=== PATIENT | female | born 1930 | race Two or more races ===

== ENCOUNTER 2018-10-04 12:58 | Inpatient (IN) | payer MEDICARE, MEDICAID ==
[~2018-10-04] VITALS: Ht 152.4 cm; Wt 48.2 kg
--- NOTE | 2018-10-04 13:00 | NUR ---
AAOX3, BIB RA 102 FROM HOME,WEAKNESS X 4 DAYS. RR is even and unlabored with NAD noted. Skin is warm and dry. Placed on hospital gown and monitor. Awaiting md for eval.
[2018-10-04 13:25] LABS: BASOPHILS % (AUTO) 1.2 % (0.0-2.0); EOSINOPHILS % (AUTO) 1.2 % (0.0-6.0); HEMATOCRIT 25 % (33-45); HEMOGLOBIN 8.1 g/dL (11.5-14.8); LYMPHOCYTES # (AUTO) 0.6 /CMM (0.8-4.8); LYMPHOCYTES % (AUTO) 29.8 % (20.0-44.0); MEAN CORPUSCULAR HGB CONC 33 g/dl (31.0-36.0); MEAN CORPUSCULAR VOLUME 110 fL (82-100); MONOCYTES # (AUTO) 0.1 /CMM (0.1-1.30); NEUTROPHILS # (AUTO) 1.3 /CMM (1.8-8.9); NEUTROPHILS % (AUTO) 61.8 % (43.0-81.0); PLATELET COUNT (AUTO) 100 /CMM (150-450); RED BLOOD CELL COUNT(AUTO) 2.24 MIL/uL (4.0-5.2); WHITE BLOOD COUNT (AUTO) 2.1 K/uL (4.3-11.0)
[2018-10-04 13:35] LABS: CALCIUM, SERUM 8.8 mg/dL (8.5-10.1); CARBON DIOXIDE 25 mmol/L (21-32); CHLORIDE 103 mmol/L (98-107); GLUCOSE 143 mg/dL (74-106); POTASSIUM 4.4 mmol/L (3.5-5.1); SODIUM SERUM 137 mmol/L (136-145); UREA NITROGEN, BLOOD 31 mg/dL (7-18)
[2018-10-04 13:41] LABS: ALANINE AMINOTRANSFERASE 17 U/L (12-78); ALBUMIN 3.6 g/dL (3.4-5.0); ALKALINE PHOSPHATASE 66 U/L (46-116); ASPARTATE AMINOTRANSFERASE 10 U/L (15-37); BILIRUBIN,DIRECT 0.3 mg/dL (0.0-0.2); BILIRUBIN,TOTAL 0.9 mg/dL (0.2-1.0); TOTAL PROTEIN, SERUM 6.2 g/dL (6.4-8.2)
[2018-10-04] MEDS ORDERED: CLON0.1T PO (13:51)
[2018-10-04] MEDS ORDERED: FERR325T24 PO (13:51)
[2018-10-04] MEDS ORDERED: ISOS60TA4 PO (13:51)
[2018-10-04] MEDS ORDERED: ACET-2605 PO (13:51)
[2018-10-04] MEDS ORDERED: LOSA100T31 PO (13:51)
[2018-10-04] MEDS ORDERED: ATOR10TA PO (13:51)
[2018-10-04] MEDS ORDERED: ASPI81TA44 PO (13:51)
[2018-10-04] MEDS ORDERED: AMLO5TAB9 PO (13:51)
[2018-10-04] MEDS ORDERED: FURO20TA4 PO (13:51)
[2018-10-04] MEDS ORDERED: CLON0.5T12 PO (13:51)
[2018-10-04] MEDS ORDERED: CARV25TA2 PO (13:51)
[2018-10-04] MEDS ORDERED: AMIO200T4 PO (13:51)
[2018-10-04] MEDS ORDERED: ERGO500040 PO (13:51)
[2018-10-04] MEDS ORDERED: NIFE30TA89 PO (13:51)
[2018-10-04 14:33] LABS: BAND % (MANUAL) 2 % (0.0-5.0); LYMPHOCYTES % (MANUAL) 33 % (16-48); MONOCYTES % (MANUAL) 4 % (0-11.0); NEUTROPHILS % (MANUAL) 61 (42-76)
[2018-10-04] MEDS ORDERED: ACETAMINOPHEN 325 MG TABLET ONE (14:51)
--- NOTE | 2018-10-04 14:54 | NUR ---
verbally ordered by Dr Sheldon Tylenol 650mg PO given.
[2018-10-04 15:29] LABS: APPEARANCE,URINE Clear (CLEAR); BILIRUBIN,URINE Negative (NEGATIVE); BLOOD, URINE Negative Ery/uL (NEGATIVE); COLOR,URINE Yellow (YELLOW); KETONES,URINE Negative (NEGATIVE); LEUKOCYTE ESTERASE ,URINE Negative (NEGATIVE); NITRITE, URINE Negative (NEGATIVE); PH,URINE 5.5 (5.0-8.0); PROTEIN,URINE Negative (NEGATIVE); UGLUCOSE Negative (NEGATIVE); UROBILINOGEN,URINE 0.2 EU/dL (0.2)
[2018-10-04] MEDS ORDERED: FUROSEMIDE 40 MG/4 ML VIAL ONE (15:29)
[2018-10-04] MEDS ORDERED: FUROSEMIDE 40 MG/4 ML VIAL IV ONE ×3 (15:30→20:00)
[2018-10-04] MEDS ORDERED: ENALAPRILAT INJ (1.25 MG/ML) 1.25 MG/ML VIAL IV PRN (15:30)
[2018-10-04] MEDS ORDERED: ACETAMINOPHEN 650 MG/20.3 ML UDC PO ONE (15:30)
[2018-10-04] MEDS ORDERED: ONDANSETRON HCL/PF 4 MG/2 ML VIAL IVP PRN (16:00)
[2018-10-04] MEDS ORDERED: MORPHINE SULFATE INJ 2 MG/ML DISP.SYRIN IV PRN (16:00)
[2018-10-04] MEDS ORDERED: MAGNESIUM HYDROXIDE 30 ML UDC PO PRN (16:00)
[2018-10-04] MEDS ORDERED: ACETAMINOPHEN 325 MG TABLET PO PRN (16:00)
[2018-10-04] MEDS ORDERED: HYDROCODONE/APAP 5/325MG 1 EACH TABLET PO PRN (16:00)
[2018-10-04] MEDS ORDERED: MAG HYDROX/AL HYDROX/SIMETH 30 ML UDC PO PRN (16:00)
[2018-10-04] MEDS ORDERED: CLONIDINE HCL 0.1 MG TABLET PO PRN (16:00)
--- NOTE | 2018-10-04 16:17 | NUR ---
CALLED ROBERTO GALVIN FOR BED; STATED THAT HE IS WAITING FOR DISCHARGES FROM UP STAIRS TO HAPPEN, THEN HE WILL GIVE BEDS.
[2018-10-04] MEDS ORDERED: AMLODIPINE BESYLATE 5 MG TABLET PO SCH (17:00)
--- NOTE | 2018-10-04 17:52 | NUR ---
REPORT GIVEN TO jarret BEACH FOR DEMI TELE 309-1
[2018-10-04] MEDS: PANTOPRAZOLE 40 MG TABLET.DR PO SCH (19:02)
--- NOTE | 2018-10-04 19:22 | NUR ---
REPORT ENDORSED TO Nadeen. QUESTIONS CONCERNS ADDRESSED. ONE TIME ORDER OF LASIX ADMISSION ORDER ENDORSED PHARMACY HAD TO REORDER SINCE PAST DUE. PATIENT IS IN BED DOWN LOCKED, IVORIAN SPEAKING ONLY BUT NO DISTRESS. NO FAMILY AT THE BEDSIDE.CALL LIGHT IN REACH.
--- NOTE | 2018-10-04 19:55 | NUR ---
RN ADMITTING NOTES/OPENING NOTES: Pt ALREADY ON FLOOR AT CHANGE OF SHIFT. RECEIVED REPORT FROM DAYSKYFT RN SHAMA/DIOR. FOUND Pt AWAKE, RESTING IN BED. NO S/S OF ACUTE DISTRESS OR SOB NOTED. Pt IS A/OX4, VERBAL, MONTENEGRIN SPEAKING ONLY. NO C/O PAIN AT THIS TIME. ON TELE MONITOR; READING SR 60s V-PACING. IV ACCESS ON LFA #20G, SL. SAFETY MEASURES IN PLACE. BED LOW, LOCKED, HOB ELEVATED, SIDE RAILS UP, CALL LIGHT AND BEDSIDE TABLE WITHIN REACH. WILL CONTINUE TO MONITOR Pt's CONDITION AND SAFETY THROUGHOUT THE NIGHT.
[2018-10-04 20:00] VITALS: BP 131/58
[2018-10-04] MEDS: ENOXAPARIN SODIUM 30 MG/0.3 ML DISP.SYRIN SQ SCH (21:39)
[2018-10-04] MEDS: clonazePAM 0.5 MG TABLET PO SCH (21:39)
[2018-10-04] MEDS: CARVEDILOL 6.25 MG TABLET PO SCH (21:41)
[2018-10-05] VITALS (7 sets, daily range): BP systolic 113–151; BP diastolic 51–68
--- NOTE | 2018-10-05 06:44 | NUR ---
RN CLOSING NOTES NO SIGNIFICANT CHANGES IN Pt's CONDITION. Pt REMAINS STABLE AT THIS TIME. NO S/S OF ACUTE DISTRESS OR SOB NOTED DURING THE NIGHT. ALL NEEDS MET AND ATTENDED TO. Pt IS CURRENTLY RESTING IN BED WITH EVEN AND UNLABORED RESPIRATIONS. TELE READING SR 60s A-PACING. SAFETY MEASURES IN PLACE. WILL ENDORSE TO DAYSHIFT RN FOR Pt's DEMI.
[2018-10-05 07:40] LABS: BASOPHILS % (AUTO) 1.7 % (0.0-2.0); EOSINOPHILS % (AUTO) 0.8 % (0.0-6.0); HEMATOCRIT 26 % (33-45); HEMOGLOBIN 8.8 g/dL (11.5-14.8); LYMPHOCYTES # (AUTO) 0.7 /CMM (0.8-4.8); LYMPHOCYTES % (AUTO) 40.3 % (20.0-44.0); MEAN CORPUSCULAR HGB CONC 34 g/dl (31.0-36.0); MEAN CORPUSCULAR VOLUME 106 fL (82-100); MONOCYTES # (AUTO) 0.1 /CMM (0.1-1.30); MONOCYTES % (AUTO) 4.9 % (2.0-12.0); NEUTROPHILS # (AUTO) 0.9 /CMM (1.8-8.9); NEUTROPHILS % (AUTO) 52.3 % (43.0-81.0); PLATELET COUNT (AUTO) 98 /CMM (150-450); RED BLOOD CELL COUNT(AUTO) 2.44 MIL/uL (4.0-5.2)
[2018-10-05 07:47] LABS: CALCIUM, SERUM 9.1 mg/dL (8.5-10.1); CARBON DIOXIDE 31 mmol/L (21-32); CHLORIDE 101 mmol/L (98-107); CREATININE 1.1 mg/dL (0.6-1.3); GLUCOSE 84 mg/dL (74-106); MAGNESIUM 1.9 mg/dL (1.8-2.4); PHOSPHORUS 4.6 mg/dL (2.5-4.9); POTASSIUM 3.5 mmol/L (3.5-5.1); SODIUM SERUM 141 mmol/L (136-145); UREA NITROGEN, BLOOD 34 mg/dL (7-18)
[2018-10-05 07:55] LABS: WHITE BLOOD COUNT (AUTO) 1.8 K/uL (4.3-11.0)
--- NOTE | 2018-10-05 07:58 | NUR ---
PLANT TENDER OPENING NOTES PATIENT A/O X 4 AND ABLE TO MAKE NEEDS KNOWN, RESPONSIVE TO ALL STIMULI. RESPIRATION EVEN AND NON LABORED WITH NO ACUTE RESPIRATORY DISTRESS. ABDOMEN SOFT AND NON DISTENDED WITH ACTIVE BOWEL SOUNDS TO ALL QUADRANTS. SKIN WARM TO TOUCH, INTACT AND DRY. IV LINE AT LEFT FA GAUGE 20 WITH NO S/SX OF INFILTRATION. TELE MONITOR WITH A PACE 60. ALL CONCERNS ATTENDED. PLACED CALL LIGHT WITHIN REACH FOR SAFETY. WILL CONTINUE TO EVALUATE CARE.
[2018-10-05] MEDS ORDERED: POTASSIUM CHLORIDE 20 MEQ POWDER PACKET PO ONE (08:00)
[2018-10-05 08:14] LABS: BAND % (MANUAL) 4 % (0.0-5.0); EOSINOPHILS % (MANUAL) 1 % (0-4); LYMPHOCYTES % (MANUAL) 42 % (16-48); MONOCYTES % (MANUAL) 6 % (0-11.0); NEUTROPHILS % (MANUAL) 47 (42-76)
[2018-10-05] MEDS ORDERED: NIFEdipine XL (30MG) 30 MG TAB PO SCH (09:00)
[2018-10-05] MEDS ORDERED: ISOSORBIDE MONONITRATE (30MG) 30 MG TAB.SR.24H PO SCH (09:00)
[2018-10-05] MEDS ORDERED: FUROSEMIDE 40 MG TABLET PO SCH (09:00)
[2018-10-05] MEDS: PANTOPRAZOLE 40 MG TABLET.DR PO SCH (09:02)
[2018-10-05] MEDS: FERROUS SULFATE (325 MG) 325 MG/TAB TABLET PO SCH (09:02)
[2018-10-05] MEDS: ATORVASTATIN 10 MG TABLET PO SCH (09:02)
[2018-10-05] MEDS: CARVEDILOL 6.25 MG TABLET PO SCH ×2 (09:03→21:32)
[2018-10-05] MEDS: LOSARTAN POTASSIUM 25 MG TABLET PO SCH (09:04)
[2018-10-05] MEDS: ASPIRIN EC 81 MG TABLET.DR PO SCH (09:04)
[2018-10-05] MEDS: FUROSEMIDE 20 MG TABLET PO SCH ×2 (09:05→09:06)
[2018-10-05] MEDS: hydrALAZINE HCL 50 MG TABLET PO SCH ×2 (09:05→16:45)
[2018-10-05] MEDS: AMIODARONE HCL 200 MG TABLET PO SCH (09:05)
[2018-10-05 09:31] LABS: CHOLESTEROL 136 mg/dL (<200); HDL CHOLESTEROL 66 mg/dL (40-60); LDL 64 mg/dL (0-99); THYROID STIMULATING HORMONE 2.249 uIU/mL (0.358-3.74); TRIGLYCERIDES 75 mg/dL (30-150)
--- NOTE | 2018-10-05 18:46 | NUR ---
LEARNING AND DEVELOPMENT SPECIALIST CLOSING NOTES PATIENT A/O X 4 AND ABLE TO MAKE NEEDS KNOWN, RESPONSIVE TO ALL STIMULI. RESPIRATORY EVEN AND NON LABORED WITH NO ACUTE RESPIRATORY DISTRESS. ABDOMEN SOFT AND NON DISTENDED WITH ACTIVE BOWEL SOUNDS TO ALL QUADRANTS. PATIENT DENIES PAIN AND DISCOMFORT. SKIN WARM TO TOUCH, INTACT AND DRY. IV AT LEFT ANTECUBITAL WITH GAUGE 20 PATENT IN FLUSHING, NO S/SX OF INFILTRATION. TELE MONITOR WITH SINUS RHYTHM WITH A PACE AT 68. ALL CONCERNS ADDRESSED. PLACED CALL LIGHT WITHIN REACH TO ENSURE SAFETY. ENDORSED PATIENT CONDITION TO NEXT SHIFT.
--- NOTE | 2018-10-05 19:50 | NUR ---
RN INITIAL NOTES: RECEIVED REPORT FROM JACK RN, PT IN BED, AWAKE, A/O X3 ON RA RESPIRATION EVEN AND UNLABORED, DENIES ANY PAIN OR DISCOMFORT AT THIS TIME. BED SIDE COMMODE AVAILABLE. CHANGED PT'S IV ACCESS NOTED TO BE LEAKING. REINSERTED ON LEFT FA USING G22, GOOD BLOOD RETURN NOTED. BLE OFFLOADED. SAFETY PRECAUTIONS FOR FALL INITIATED, CALL LIGHT IN REACH, WILL CONTINUE MONITORING PT.
--- NOTE | 2018-10-05 20:00 | NUR ---
RN NOTES: LEFT EAR HEARING AID IN PLACED
[2018-10-05] MEDS: ENOXAPARIN SODIUM 30 MG/0.3 ML DISP.SYRIN SQ SCH (21:00)
--- NOTE | 2018-10-05 21:11 | NUR ---
NON ADMIN OF LOVENOX: CONTACTED MD REGIONAL SERVICE MANAGER RELAYED ABOUT H/H AND PLATELET 8.6 AND PLT 98, PT HAS SCHEDULE LOVENOX AT 2100, PER MD HOLD DOSE FOR MARGRET.
[2018-10-05] MEDS: clonazePAM 0.5 MG TABLET PO SCH (21:36)
[2018-10-06] VITALS: BP 143/64
--- NOTE | 2018-10-06 01:02 | NUR ---
RN NOTES: SEEN PT SLEEPING AT THIS TIME, APPEARS CALM AND COMFORTABLE
[2018-10-06 06:48] LABS: CALCIUM, SERUM 8.6 mg/dL (8.5-10.1); CARBON DIOXIDE 28 mmol/L (21-32); CHLORIDE 106 mmol/L (98-107); CREATININE 1.4 mg/dL (0.6-1.3); GLUCOSE 86 mg/dL (74-106); POTASSIUM 3.8 mmol/L (3.5-5.1); SODIUM SERUM 144 mmol/L (136-145); UREA NITROGEN, BLOOD 41 mg/dL (7-18)
--- NOTE | 2018-10-06 06:48 | NUR ---
rn closing notes: pt in bed, awake, appears calm and comfortable, iv access remains patent and flushing well, on hl. remains on sinus rhythm hr 63 and a pacing. vs remains stable, needs attended. safety precautions for fall remains engaged, call light in reach, will endorse to day rn for continuity of care.
--- NOTE | 2018-10-06 07:24 | NUR ---
RN NOTES: SEEN BY INSPECTOR RAG SORTING, PER MD CORNELIA MARTINEZ TODAY, REPEAT BMP IN THE AFTERNOON 1200, IF CREATININE RESULT IS THE SAME OR LESS, OKAY TO DC LATER TODAY, BUT IF CREATININE WENT UP/ELEVATED, KEEP PT FOR ONE MORE DAY. RELAYED ALL THIS TO DAY LUCIANO CARLISLE
[2018-10-06 08:00] VITALS: BP 156/67
--- NOTE | 2018-10-06 08:00 | NUR ---
RN NOTES RECEIVED PATIENT IN THE BED A/O X3 TURKISH SPEAKER FEMALE ON TELE SR-67. PATIENT STABLE NO ACUTE RESPIRATORY DISTRESS, V/S STABLE, ADMINISTERED SCHEDULED MEDICATION. NEEDS ATTENDED AND ANTICIPATED. PATIENT REFUSED PAIN AT THIS TIME. HELD 2 BP MEDICATION. CALL LIGHT WITHIN TO REACH. SAFETY PRECAUTION MAINTAINED ALL THE TIME.
[2018-10-06] MEDS: AMIODARONE HCL 200 MG TABLET PO SCH (09:00)
[2018-10-06] MEDS: LOSARTAN POTASSIUM 25 MG TABLET PO SCH (09:00)
[2018-10-06] MEDS: ASPIRIN EC 81 MG TABLET.DR PO SCH ×2 (09:00→09:52)
[2018-10-06 09:18] VITALS: BP 130/80
[2018-10-06] MEDS: PANTOPRAZOLE 40 MG TABLET.DR PO SCH (09:51)
[2018-10-06] MEDS: FERROUS SULFATE (325 MG) 325 MG/TAB TABLET PO SCH (09:51)
[2018-10-06] MEDS: CARVEDILOL 6.25 MG TABLET PO SCH ×2 (09:52→21:00)
[2018-10-06] MEDS: ATORVASTATIN 10 MG TABLET PO SCH (09:53)
[2018-10-06] MEDS: hydrALAZINE HCL 50 MG TABLET PO SCH ×2 (09:58→16:46)
--- NOTE | 2018-10-06 10:24 | NUR ---
RN NOTES PATIENT WALKING IN THE HALLWAY WITH PT USING WALKER, STABLE, CONTINUED MONITORING.
--- NOTE | 2018-10-06 12:00 | NUR ---
RN NOTES ASSIST PATIENT TO THE BATHROOM, PATIENT UNSTEADY GAIT, SAFETY PRECAUTION MAINTAINED ALL THE TIME. FAMILY NEXT TO THE BED.
[2018-10-06 13:01] LABS: CALCIUM, SERUM 8.6 mg/dL (8.5-10.1); CARBON DIOXIDE 28 mmol/L (21-32); CHLORIDE 105 mmol/L (98-107); CREATININE 1.4 mg/dL (0.6-1.3); GLUCOSE 145 mg/dL (74-106); SODIUM SERUM 142 mmol/L (136-145); UREA NITROGEN, BLOOD 39 mg/dL (7-18)
--- NOTE | 2018-10-06 15:05 | NUR ---
RN NOTES ADMINISTERED TYLENOL 650 MG PO PRN FOR GENERALIZED PAIN 5/10 PER PATIENT REQUEST, CONTINUED MONITORING.
[2018-10-06 16:00] VITALS: BP 120/49
[2018-10-06 16:45] VITALS: BP 120/49
--- NOTE | 2018-10-06 16:55 | NUR ---
RN NOTES PATIENT REFUSED BP MEDICATION BECAUSE OF BP 120/49, P-71 LOW. FAMILY NEXT TO THE BED. SAFETY PRECAUTION MAINTAINED ALL THE TIME.
--- NOTE | 2018-10-06 19:05 | NUR ---
MS RN NOTES RECEIVED PT IN THE BED AWAKE AND ABLE TO MAKE NEEDS KNOWN. PT A/O X3 AND GREEK SPEAKING. RESPIRATIONS EVEN AND UNLABORED WITH NO S/S OF ACUTE DISTRESS OR SOB NOTED. PT DENIES PAIN AT THIS TIME. SAFETY MEASURES IN PLACE WITH BED IN LOWEST LOCKED POSITION WITH SIDE RAILS UP X2. CALL LIGHT WITHIN REACH. WILL CONTINUE TO MONITOR.
[2018-10-06 20:42] VITALS: BP 125/52
[2018-10-06] MEDS: ENOXAPARIN SODIUM 30 MG/0.3 ML DISP.SYRIN SQ SCH (21:00)
[2018-10-06] MEDS: clonazePAM 0.5 MG TABLET PO SCH (21:50)
--- NOTE | 2018-10-07 06:42 | NUR ---
MS RN NOTES PT IN THE BED SLEEPING BUT EASILY AWOKEN VERBALLY OR BY TOUCH. PT A/O X3 AND UZBEK SPEAKING AND ABLE TO MAKE NEEDS KNOWN. RESPIRATIONS EVEN AND UNLABORED WITH NO S/S OF ACUTE DISTRESS OR SOB NOTED THROUGHOUT SHIFT. PT DENIES PAIN AT THIS TIME. SAFETY MEASURES IN PLACE WITH BED IN LOWEST LOCKED POSITION WITH SIDE RAILS UP X2. CALL LIGHT WITHIN REACH. WILL ENDORSE TO ONCOMING NURSE FOR DEMI.
[2018-10-07 08:21] VITALS: BP 171/75
[2018-10-07 08:30] LABS: CALCIUM, SERUM 9.1 mg/dL (8.5-10.1); CARBON DIOXIDE 27 mmol/L (21-32); CHLORIDE 106 mmol/L (98-107); CREATININE 1.2 mg/dL (0.6-1.3); GLUCOSE 107 mg/dL (74-106); POTASSIUM 3.9 mmol/L (3.5-5.1); SODIUM SERUM 144 mmol/L (136-145); UREA NITROGEN, BLOOD 35 mg/dL (7-18)
[2018-10-07] MEDS: PANTOPRAZOLE 40 MG TABLET.DR PO SCH (08:41)
[2018-10-07] MEDS: CARVEDILOL 6.25 MG TABLET PO SCH (08:41)
[2018-10-07] MEDS: ATORVASTATIN 10 MG TABLET PO SCH (08:41)
[2018-10-07 08:42] VITALS: BP 171/75
[2018-10-07] MEDS: AMIODARONE HCL 200 MG TABLET PO SCH (08:42)
[2018-10-07] MEDS: hydrALAZINE HCL 50 MG TABLET PO SCH (08:42)
[2018-10-07] MEDS: LOSARTAN POTASSIUM 25 MG TABLET PO SCH (08:42)
[2018-10-07] MEDS: ASPIRIN EC 81 MG TABLET.DR PO SCH (08:42)
[2018-10-07] MEDS: FERROUS SULFATE (325 MG) 325 MG/TAB TABLET PO SCH (08:42)
--- NOTE | 2018-10-07 10:02 | NUR ---
MS RN NOTES PATIENT IN BED RESTING PATIENT ALERT, ORIENTED X3 DENIES ANY PAIN. PERIPHERAL IV INTACT PATENT. BED IN LOW LOCKED POSITION. CALL LIGHT WITHIN REACH. WILL CONTINUE TO MONITOR.
--- NOTE | 2018-10-07 12:45 | NUR ---
MS RN NOTES PATIENT DISCHARGED HOME WITH FAMILY. DISCHARGE TEACHING PROVED TO PATIENT AND FAMILY. DISCHARGE PROTOCOL FOLLOWED. ALL BELONGS ACCOUNTED FOR, BELONG IST SIGNED. MD AWARE OF ALL ABNORMAL TEST. IB BAND REMOVED. PERIPHERAL IV REMOVED WITH MINIMAL BLEEDING. PATIENT ESCORTED TO CAR.
[2018-10-09] MEDS ORDERED: ERGOCALCIFEROL (VITAMIN D 2) 50,000 UNIT CAPSULE PO SCH (09:00)
== END 2018-10-07 12:45 | disposition home or self-care (01) | DRG 292 ==
LOC: ER 12:58 → TELE 18:20 → MED 10-06 08:13
PROVIDERS: ADMIT Nurse Practitioner Acute Care; ATTEND Nurse Practitioner Acute Care
DX: I11.0 Hypertensive heart disease with heart failure (principal); D61.818 Other pancytopenia; I50.33 Acute on chronic diastolic (congestive) heart failure; E78.5 Hyperlipidemia, unspecified; I27.20 Pulmonary hypertension, unspecified; Z79.82 Long term (current) use of aspirin; Z79.899 Other long term (current) drug therapy; D53.9 Nutritional anemia, unspecified; I34.0 Nonrheumatic mitral (valve) insufficiency; Z90.710 Acquired absence of both cervix and uterus; Z95.2 Presence of prosthetic heart valve; D72.819 Decreased white blood cell count, unspecified; R79.89 Other specified abnormal findings of blood chemistry; I70.0 Atherosclerosis of aorta
CPT/HCPCS: 36415; 71045-TC; 80048-TC; 80061-TC; 80076-TC; 81000-TC; 83735-TC; 83880; 84100-TC; 84443-TC; 84484-TC; 85025-TC; 87081-TC; 93307-TC; G0378; J1650; J1940; J3490

== ENCOUNTER 2018-11-10 11:21 | Inpatient (IN) | payer MEDICARE, MEDICAID ==
[~2018-11-10] VITALS: Ht 152.4 cm; Wt 49.9 kg
[~2018-11-10 11:21] MED LIST: ACET-2605 PO; AMIO200T4 PO; ASPI81TA44 PO; ATOR10TA PO; CARV25TA2 PO; CLON0.1T PO; CLON0.5T12 PO; ERGO500040 PO; FERR325T24 PO; FURO20TA4 PO; LOSA100T31 PO
--- NOTE | 2018-11-10 11:35 | NUR ---
SOB, PALPIATIONS, AND BILATERAL LOWER EXTREMITY EDEMA. WAS ADMITTED LAST MONTH FOR SIMILAR SX. PT HAS DIFFICULTY WALKING TODAY, AOX4, VSS, STABLE ON ROOM AIR. SKIN INTACT, SOME BRUISING ON BUE. NO ACUTE DISTRESS NOTED. PALAUAN-SPEAKING, FAMILY AT BEDSIDE. MADE COMFORTABLE AND READY FOR EVAL.
[2018-11-10] MEDS ORDERED: ISOS60TA4 PO (11:48)
[2018-11-10] MEDS ORDERED: HYDR-4077 PO (11:48)
[2018-11-10 11:49] LABS: BASOPHILS # (AUTO) 0.1 /CMM (0.0-0.2); EOSINOPHILS % (AUTO) 0.3 % (0.0-6.0); HEMATOCRIT 25 % (33-45); HEMOGLOBIN 8.3 g/dL (11.5-14.8); LYMPHOCYTES # (AUTO) 0.6 /CMM (0.8-4.8); LYMPHOCYTES % (AUTO) 22.5 % (20.0-44.0); MEAN CORPUSCULAR HGB CONC 33 g/dl (31.0-36.0); MEAN CORPUSCULAR VOLUME 111 fL (82-100); MONOCYTES # (AUTO) 0.1 /CMM (0.1-1.30); MONOCYTES % (AUTO) 3.7 % (2.0-12.0); NEUTROPHILS # (AUTO) 1.9 /CMM (1.8-8.9); NEUTROPHILS % (AUTO) 71.5 % (43.0-81.0); PLATELET COUNT (AUTO) 104 /CMM (150-450); RED BLOOD CELL COUNT(AUTO) 2.24 MIL/uL (4.0-5.2); WHITE BLOOD COUNT (AUTO) 2.7 K/uL (4.3-11.0)
[2018-11-10 11:59] LABS: CALCIUM, SERUM 8.9 mg/dL (8.5-10.1); CARBON DIOXIDE 21 mmol/L (21-32); CHLORIDE 106 mmol/L (98-107); CREATININE 1.2 mg/dL (0.6-1.3); GLUCOSE 125 mg/dL (74-106); POTASSIUM 4.5 mmol/L (3.5-5.1); SODIUM SERUM 140 mmol/L (136-145); UREA NITROGEN, BLOOD 43 mg/dL (7-18)
--- NOTE | 2018-11-10 11:59 | NUR ---
XRAY AT BEDSIDE
[2018-11-10 12:12] LABS: B-TYPE NATRIURETIC PEPTIDE 5938 PG/ML (0-125)
[2018-11-10 12:19] LABS: BAND % (MANUAL) 1 % (0.0-5.0); EOSINOPHILS % (MANUAL) 1 % (0-4); LYMPHOCYTES % (MANUAL) 30 % (16-48); MONOCYTES % (MANUAL) 7 % (0-11.0); NEUTROPHILS % (MANUAL) 61 (42-76)
[2018-11-10] MEDS ORDERED: ASPIRIN 325 MG TABLET PO ONE (12:30)
[2018-11-10] MEDS ORDERED: FUROSEMIDE 40 MG/4 ML VIAL IV ONE (12:30)
[2018-11-10] MEDS ORDERED: NITROGLYCERIN 0.4 MG/HR PATCH.TD24 TD SCH (12:30)
[2018-11-10] MEDS ORDERED: FUROSEMIDE 40 MG/4 ML VIAL ONE (12:37)
[2018-11-10] MEDS ORDERED: ASPIRIN 325 MG TABLET ONE (12:37)
[2018-11-10] MEDS ORDERED: NITROGLYCERIN PACKET 1 GM PACKET ONE (12:40)
--- NOTE | 2018-11-10 13:00 | NUR ---
115-2 JOAN TREVINO CHF
--- NOTE | 2018-11-10 13:30 | NUR ---
REPORT GIVEN TO LUCIANO STAPLES FOR 115-2 TELE
--- NOTE | 2018-11-10 14:45 | NUR ---
COMMERCIAL REAL ESTATE MANAGER NOTE: RECEIVED PATIENT IN ROOM 115-2, AWAKE, ALERT AND VERBALLY RESPONSIVE. [id number] PRESENT UPON TRANSFER. PATIENT WAS TRANSFERRED TO THE UNIT VIA GURNEY. RESPIRATION EVEN AND UNLABORED SATURATING 99% IN ROOM AIR. DENIED ANY PAIN. DENIED ANY SHORTNESS OF BREATH NOR ANY PALPITATIONS. PATIENT WAS TRANSFERRED TO THE BED AND HOB WAS ELEVATED AT 35 DEGREE. SKIN WARM TO TOUCH. AFEBRILE. V/S WAS TAKEN. PATIENT WAS ATTACHED TO THE METAL MELTER AND SHOWED SR HR= 62. COMPLETE BODY ASSESSMENT WAS DONE. (R) AC 20G NOTED IN PLACED COVERED WITH TRANSPARENT DRESSING. BED ALARMED AND LOCKED AT ALL TIMES. EDUCATED TO USE THE CALL LIGHT BUTTON WHENEVER SHE NEEDED ASSISTANCE FROM THE NURSES. PATIENT UNDERSTOOD. CALL LIGHT WITHIN REACH. NEEDS ANTICIPATED.
--- NOTE | 2018-11-10 14:50 | NUR ---
[facility]
[2018-11-10] MEDS ORDERED: NITROGLYCERIN PACKET 1 GM PACKET TOP SCH (15:00)
--- NOTE | 2018-11-10 15:03 | NUR ---
RN NOTE: INFORMED DR. TREVINO REGARDING THE PATIENT'S ADMISSION TO THE UNIT AND AWAITING FOR ADMISSION ORDERS. MD WAS ALSO INFORMED OF THE INITIAL VITAL SIGN OF THE PATIENT. PATIENT'S FAMILY TOOK ALL BELONGINGS TO HOME AND LEFT THE FULL DENTURES, (L) EAR HEARING AID AND BLUE ROBE. PATIENT ON COMFORTABLE POSITION AT THIS TIME.
[2018-11-10 16:00] VITALS: BP 179/69
[2018-11-10] MEDS ORDERED: Z GUARD REMEDY 2 OZ OINT TP PRN (16:00)
[2018-11-10] MEDS ORDERED: ONDANSETRON HCL/PF 4 MG/2 ML VIAL IVP PRN (16:00)
[2018-11-10] MEDS ORDERED: ENOXAPARIN SODIUM 30 MG/0.3 ML DISP.SYRIN SQ SCH (16:00)
[2018-11-10] MEDS: hydrALAZINE HCL 50 MG TABLET PO SCH (16:34)
[2018-11-10] MEDS ORDERED: BUMETANIDE INJ 4 MG in IV NS 0.9% 24 ML IV ONE (17:00)
[2018-11-10] MEDS: HEPARIN SODIUM, PORCINE 5000 UNITS/1 ML VIAL SQ SCH (18:49)
--- NOTE | 2018-11-10 19:20 | NUR ---
TELE/RN INITIAL NOTES RECEIVED PT IN BED, A/OX3, MALTESE SPEAKING, FAMILY AT BEDSIDE. ON ROOM AIR, NO SOB NOTED. DENIES ANY PAIN AT THIS TIME. WITH ONGOING BUMEX DRIP ON LAC G20 IV LINE, C/D/I. FC INTACT AND IN PLACED. CALL LIGHT WITHIN EASY REACH. SAFETY MEASURES IN PLACED. CALL LIGHT WITHIN EASY REACH. WILL CONT TO MONITOR
--- NOTE | 2018-11-10 19:45 | NUR ---
RN NOTE: BEDSIDE REPORT GIVEN TO PM SHIFT NURSE FOR CONTINUITY OF CARE. IZABELA (DAUTHER IN [employer]) WAS PRESENT AT THE BEDSIDE AND PM SHIFT NURSE WAS INTRODUCED TO HER.
[2018-11-10 20:00] VITALS: BP 103/41
[2018-11-10] MEDS: CARVEDILOL 12.5 MG TABLET PO SCH (21:00)
[2018-11-10] MEDS: ATORVASTATIN 10 MG TABLET PO SCH (21:24)
[2018-11-10] MEDS: clonazePAM 0.5 MG TABLET PO SCH (21:24)
[2018-11-11] VITALS (8 sets, daily range): BP systolic 93–145; BP diastolic 47–70
--- NOTE | 2018-11-11 00:01 | NUR ---
RN NOTES NOTIFIED LIABILITY CLAIMS MANAGER JUSTIN, PT'S ADMITTED FOR CHF, PT DOES NOT HAVE ECHO DONE/ORDER. LIABILITY CLAIMS MANAGER JUSTIN ORDERED ECHO.
[2018-11-11] MEDS: HEPARIN SODIUM, PORCINE 5000 UNITS/1 ML VIAL SQ SCH ×2 (05:27→17:54)
--- NOTE | 2018-11-11 06:41 | NUR ---
RN NOTES PT IN STABLE CONDITION. NO ACUTE CHANGES THROUGHOUT SHIFT. ALL NEEDS ANTICIPATED. SAFETY MEASURES OBSERVED AT ALL TIMES. ENDORSED TO AM RN FOR DEMI
--- NOTE | 2018-11-11 07:31 | NUR ---
TELE/RN NOTES RECEIVED PT IN BED, A/OX3, COMORAN SPEAKING, RESTING COMFORTABLY IN BED, ON ROOM AIR, NO SOB NOTED. DENIES ANY PAIN AT THIS TIME. ,ON TELE MONITOR A PACING HR 61,ON LAC G20 IV LINE, C/D/I. FC INTACT AND IN PLACED. CALL LIGHT WITHIN EASY REACH. SAFETY MEASURES IN PLACED. CALL LIGHT WITHIN EASY REACH. WILL CONT TO MONITOR
[2018-11-11] MEDS: hydrALAZINE HCL 50 MG TABLET PO SCH ×2 (08:45→16:24)
[2018-11-11] MEDS: ASPIRIN EC 81 MG TABLET.DR PO SCH (08:45)
[2018-11-11] MEDS: CARVEDILOL 12.5 MG TABLET PO SCH ×2 (08:46→21:18)
[2018-11-11] MEDS: ISOSORBIDE MONONITRATE 20 MG TABLET PO SCH (08:47)
--- NOTE | 2018-11-11 09:07 | NUR ---
WIND FIELD SERVICE MANAGER NOTE ECHO DONE ORDERED , ALL NEEDS ATTENDED, WILL CONT TO MONITOR
--- NOTE | 2018-11-11 10:04 | NUR ---
LOOM FIXER HELPER NOTE SEEN BY DR AGUILAR, AWARE OF 2D ECHO RESULT
[2018-11-11 10:05] LABS: BASOPHILS % (AUTO) 1.5 % (0.0-2.0); EOSINOPHILS % (AUTO) 0.5 % (0.0-6.0); HEMATOCRIT 22 % (33-45); HEMOGLOBIN 7.3 g/dL (11.5-14.8); LYMPHOCYTES # (AUTO) 0.7 /CMM (0.8-4.8); LYMPHOCYTES % (AUTO) 26.8 % (20.0-44.0); MEAN CORPUSCULAR HGB CONC 33 g/dl (31.0-36.0); MEAN CORPUSCULAR VOLUME 109 fL (82-100); MONOCYTES # (AUTO) 0.1 /CMM (0.1-1.30); MONOCYTES % (AUTO) 5.1 % (2.0-12.0); NEUTROPHILS # (AUTO) 1.6 /CMM (1.8-8.9); NEUTROPHILS % (AUTO) 66.1 % (43.0-81.0); PLATELET COUNT (AUTO) 106 /CMM (150-450); RED BLOOD CELL COUNT(AUTO) 2.02 MIL/uL (4.0-5.2); WHITE BLOOD COUNT (AUTO) 2.4 K/uL (4.3-11.0)
[2018-11-11] MEDS: FUROSEMIDE 40 MG/4 ML VIAL IV SCH ×2 (10:14→13:44)
[2018-11-11 10:48] LABS: ALANINE AMINOTRANSFERASE 19 U/L (12-78); ALBUMIN 3.1 g/dL (3.4-5.0); ALKALINE PHOSPHATASE 57 U/L (46-116); ASPARTATE AMINOTRANSFERASE 11 U/L (15-37); BILIRUBIN,TOTAL 0.6 mg/dL (0.2-1.0); CALCIUM, SERUM 8.6 mg/dL (8.5-10.1); CARBON DIOXIDE 25 mmol/L (21-32); CHLORIDE 104 mmol/L (98-107); CREATININE 1.5 mg/dL (0.6-1.3); GLUCOSE 218 mg/dL (74-106); MAGNESIUM 2.1 mg/dL (1.8-2.4); POTASSIUM 3.6 mmol/L (3.5-5.1); SODIUM SERUM 141 mmol/L (136-145); TOTAL PROTEIN, SERUM 5.5 g/dL (6.4-8.2); UREA NITROGEN, BLOOD 45 mg/dL (7-18)
[2018-11-11 10:51] LABS: IRON, SERUM 58 ug/dl (50-175); TOTAL IRON BINDING CAPACITY 219 ug/dl (250-450)
[2018-11-11 11:11] LABS: CHOLESTEROL 106 mg/dL (<200); HDL CHOLESTEROL 52 mg/dL (40-60); LDL 48 mg/dL (0-99); THYROID STIMULATING HORMONE 1.437 uIU/mL (0.358-3.74); TRIGLYCERIDES 57 mg/dL (30-150)
--- NOTE | 2018-11-11 12:46 | NUR ---
PAPER MAKING MACHINE OPERATOR NOTE UP ON CHAIR , ABLE TO EAT LUNCH SELF , NOT IN DISTRESS ,NO SOB NOTED AT THIS TIME , DR JOAN MEDRANO DNP AWARE OF PATIENT CONDITION, SPOKE WITH FAMILY OVER THE PHONE
--- NOTE | 2018-11-11 13:55 | NUR ---
SALES VENDOR NOTE JOAN MEDRANO DNP AWARE THAT HG 7.3 NO NEW ORDER AT THIS TIME
--- NOTE | 2018-11-11 14:16 | NUR ---
JAVASCRIPT PROGRAMMER NOTE BACK TO BED , ALL NEEDS ATTENDED, NOT IN DISTRESS
--- NOTE | 2018-11-11 15:41 | NUR ---
WEED INSPECTOR NOTE SEEN BY PT , ABLE TO AMBULATE WITH STAND BY ASSISTANCE. WILL CONT TO MONITOR
--- NOTE | 2018-11-11 18:38 | NUR ---
MS LUCIANO BLOUNT FAMILY AT BEDSIDE , ALL NEEDS ATTENDED, WILL CONT TO MONITOR CLOSELY
--- NOTE | 2018-11-11 19:20 | NUR ---
MS/RN OPENING NOTES PT RECEIVED ASLEEP, OPENS EYES TO NAME. ON ROOM AIR, BREATHING EVEN AND UNLABORED. NO S/S OF SOB OR PAIN NOTED. ITALIAN SPEAKING ONLY. IV TO RAC PATENT AND INTACT. REYNA IN PLACE AND DRAINING TO GRAVITY. BED IN LOW/LOCKED POSITION WITH CALL LIGHT IN REACH. BILATERAL UPPER SIDE RAILS IN PLACE. HOB ELEVATED. WILL CONTINUE TO MONITOR
[2018-11-11] MEDS: ATORVASTATIN 10 MG TABLET PO SCH (21:18)
[2018-11-11] MEDS: clonazePAM 0.5 MG TABLET PO SCH (22:53)
--- NOTE | 2018-11-11 22:53 | NUR ---
MS/RN NOTES PT FEELING ANXIOUS PER FINNISH SPEAKING STAFF. ADMINISTERED SCHEDULED KLONOPIN ORDERED.
--- NOTE | 2018-11-12 | NUR ---
ROUNDING PT ASLEEP, BREATHING EVEN AND UNLABORED. IN NO ACUTE DISTRESS. WILL CONTINUE TO MONITOR
--- NOTE | 2018-11-12 02:00 | NUR ---
ROUNDING PT ROUNDING DONE. SLEEPING, BREATHING EVEN AND UNLABORED. IN NO RESP.DISTRESS
[2018-11-12 04:00] VITALS: BP 146/62
--- NOTE | 2018-11-12 04:00 | NUR ---
ROUNDING PT ASLEEP, OPENS EYES SPONTANEOUSLY. NO NEEDS EXPRESSED AT THIS TIME. WILL MONITOR
[2018-11-12] MEDS: HEPARIN SODIUM, PORCINE 5000 UNITS/1 ML VIAL SQ SCH ×2 (05:34→17:01)
--- NOTE | 2018-11-12 06:19 | NUR ---
MS/RN CLOSING NOTES PT AWAKE, RESTING COMFORTABLY IN BED. ON ROOM AIR, BREATHING EVEN AND UNLABORED. DENIES SOB AND PAIN PER NIGERIAN SPEAKING STAFF. IN NO ACUTE DISTRESS AND NO NEEDS EXPRESSED AT THIS TIME. NO SIGNIFICANT CHANGES OVERNIGHT. IV TO RAC PATENT AND INTACT. INDEPENDENT MOBILITY IN BED. REYNA IN PLACE AND DRAINING TO GRAVITY. NO BM DURING SHIFT. BED REMAINS IN LOW/LOCKED POSITION WITH CALL LIGHT IN REACH, BILAT. UPPER SIDE RAILS IN PLACE. SEMI FOWLERS POSITION. WILL ENDORSE TO DAY SHIFT RN DEMI.
[2018-11-12 06:52] LABS: BASOPHILS % (AUTO) 1.4 % (0.0-2.0); EOSINOPHILS % (AUTO) 0.7 % (0.0-6.0); HEMATOCRIT 24 % (33-45); LYMPHOCYTES # (AUTO) 0.7 /CMM (0.8-4.8); LYMPHOCYTES % (AUTO) 30.2 % (20.0-44.0); MEAN CORPUSCULAR HGB CONC 33 g/dl (31.0-36.0); MEAN CORPUSCULAR VOLUME 109 fL (82-100); MONOCYTES # (AUTO) 0.1 /CMM (0.1-1.30); MONOCYTES % (AUTO) 4.9 % (2.0-12.0); NEUTROPHILS # (AUTO) 1.4 /CMM (1.8-8.9); NEUTROPHILS % (AUTO) 62.8 % (43.0-81.0); PLATELET COUNT (AUTO) 110 /CMM (150-450); RED BLOOD CELL COUNT(AUTO) 2.19 MIL/uL (4.0-5.2); WHITE BLOOD COUNT (AUTO) 2.3 K/uL (4.3-11.0)
[2018-11-12 07:13] LABS: ALANINE AMINOTRANSFERASE 19 U/L (12-78); ALBUMIN 3.3 g/dL (3.4-5.0); ALKALINE PHOSPHATASE 59 U/L (46-116); ASPARTATE AMINOTRANSFERASE 12 U/L (15-37); BILIRUBIN,TOTAL 0.9 mg/dL (0.2-1.0); CALCIUM, SERUM 8.8 mg/dL (8.5-10.1); CARBON DIOXIDE 31 mmol/L (21-32); CHLORIDE 103 mmol/L (98-107); CREATININE 1.4 mg/dL (0.6-1.3); GLUCOSE 95 mg/dL (74-106); MAGNESIUM 2.1 mg/dL (1.8-2.4); PHOSPHORUS 4.6 mg/dL (2.5-4.9); POTASSIUM 3.5 mmol/L (3.5-5.1); SODIUM SERUM 142 mmol/L (136-145); TOTAL PROTEIN, SERUM 5.8 g/dL (6.4-8.2); UREA NITROGEN, BLOOD 42 mg/dL (7-18)
--- NOTE | 2018-11-12 07:25 | NUR ---
RN OPENING NOTES RECEIVED BEDSIDE REPORT, PATIENT AWAKE AND ALERT. THAI SPEAKING ONLY. NO COMPLAINS OF ANY PAIN OR SOB, ON ROOM AIR. HAS A LEFT CW PACEMAKER. HAS A REYNA CATH WITH CLEAR AND YELLOW URINE. HAS A RIGHT AC #20 SALINE LOCKED. PENDING CXR. THERE WAS A POSSIBLE BLOOD TRANSFUSION, BUT PATIENT WAS REFUSING. MORNING LABS TODAY SHOWS NO CRITICAL HGB VALUE, IT WAS 8.0. WILL CONTINUE TO MONITOR. BED LOCKED AND IN LOWEST POSITION, CALL LIGHT WITHIN REACH. WILL CONTINUE TO MONITOR FOR DEMI
[2018-11-12 08:00] VITALS: BP 169/54
[2018-11-12] MEDS: CARVEDILOL 12.5 MG TABLET PO SCH ×2 (08:21→21:00)
[2018-11-12] MEDS: hydrALAZINE HCL 50 MG TABLET PO SCH ×2 (08:21→17:00)
[2018-11-12] MEDS: ASPIRIN EC 81 MG TABLET.DR PO SCH (08:21)
[2018-11-12] MEDS: ISOSORBIDE MONONITRATE 20 MG TABLET PO SCH (08:21)
--- NOTE | 2018-11-12 09:22 | NUR ---
RN NOTES REPORT GIVEN TO LUCIANO PARIS FOR CONTINUITY OF CARE
--- NOTE | 2018-11-12 09:30 | NUR ---
RECEIVED REPORT FROM PADMINI WOLF
[2018-11-12] MEDS: POTASSIUM CHLORIDE 20 MEQ TAB.PRT.SR PO SCH ×3 (10:33→12:56)
[2018-11-12] MEDS: FUROSEMIDE 40 MG/4 ML VIAL IV SCH ×2 (10:33→14:33)
--- NOTE | 2018-11-12 11:14 | NUR ---
RN MS NOTES RECEIVED PATIENT IN BED A/O X4 THAI SPEAKING. ON ROOM NO SIGNS OR SYMPTOMS OF RESPIRATORY DISTRESS OR ACUTE PAIN. IV TO RAC # 20 SL FLUSHING WELL NO BLOOD RETURN. REYNA CATH PATENT AND DRAINING CLEAR YELLOW URINE. FAMILY AT BED SIDE STATING THAT PATIENT IS NOT FEELING VERY WELL. DR AGUILAR REQUESTED FAMILY PETROLEUM SUPPLY SPECIALIST NUMBER OBTAINED AND GIVEN TO MD. NEW ORDERS FOR LASIX AND POTASSIUM ADMINISTERED. WILL CONT TO MONITOR. BED IN LOW POSITION SAFETY PRECAUTIONS IN PLACE 2X SIDE RAILS CALL LIGHT WITHIN REACH WILL CONT TO MONITOR ACCORDINGLY
[2018-11-12] MEDS: ACETAMINOPHEN 325 MG TABLET PO PRN (12:39)
[2018-11-12 16:00] VITALS: BP 108/45
--- NOTE | 2018-11-12 18:43 | NUR ---
RN MS NOTES NO SIGNIFICANT CHANGES THROUGHOUT SHIFT. PATIENT PLEASANT COLOMBIAN WOMAN A/O X4 . NO SIGNS OR SYMPTOMS OF RESPIRATORY DISTRESS OR PAIN NOTED. SKIN INTACT . DIURESED X2 REYNA CATH IN PLACE DRAINING CLEAR YELLOW URINE. AMBULATORY TO BATHROOM WITH ASSIST AND/OR FWW. FAMILY REQUESTING A W/C WHEN PATIENT IS DISCHARGED SPOKE WITH TRANSFORMATION ARCHITECT AND THEY WILL ORDER .[employer] 50% OF MEALS EATEN. IV SL TO RAC # [address] BEDOLLA FOLLOWING CASE WITH ORDERS FOR LABS AND US OF ABDOMEN. SAFETY PRECAUTIONS IN PLACE BED IN LOW POSITION CALL LIGHT WITHIN REACH
--- NOTE | 2018-11-12 19:10 | NUR ---
MS/RN INITIAL NOTES RECEIVED PT IN BED, A/O X4, KOSOVAN SPEAKING, FAMILY AT BEDSIDE. ON ROOM AIR, NO SOB NOTED. NO C/O PAIN AT THIS TIME. RAC G20 PATENT, C/D/I. FC INTACT AND IN PLACED, DRAINING CLEAR YELLOW URINE. SAFETY MEASURES IN PLACED. CALL LIGHT WITHIN EASY REACH. WILL CONT TO MONITOR
--- NOTE | 2018-11-12 19:12 | NUR ---
REPORT ENDORSED TO NOC
[2018-11-12 20:00] VITALS: BP 108/41
[2018-11-12] MEDS: clonazePAM 0.5 MG TABLET PO SCH (21:16)
[2018-11-12] MEDS: ATORVASTATIN 10 MG TABLET PO SCH (21:16)
--- NOTE | 2018-11-12 22:50 | NUR ---
RN NOTES HD NURSE CAME,PER HD NURSE PT IS FOR HD. HD INITIATED USING LCW HD CATH
--- NOTE | 2018-11-12 23:25 | NUR ---
RN NOTES HD NURSE NOTIFIED ME (PRIMARY NURSE), HD WAS TERMINATED DUE TO HD CATH MALFUNCTION. PER HD NURSE 300 ML OUTPUT, NO CLEANING. PT IN STABLE CONDITION/VS. WILL CONT TO MONITOR
[2018-11-13 04:00] VITALS: BP 110/46
[2018-11-13] MEDS: HEPARIN SODIUM, PORCINE 5000 UNITS/1 ML VIAL SQ SCH ×2 (05:51→18:27)
[2018-11-13 06:29] LABS: BASOPHILS % (AUTO) 1.8 % (0.0-2.0); EOSINOPHILS % (AUTO) 0.9 % (0.0-6.0); HEMATOCRIT 22 % (33-45); HEMOGLOBIN 7.6 g/dL (11.5-14.8); LYMPHOCYTES # (AUTO) 0.7 /CMM (0.8-4.8); LYMPHOCYTES % (AUTO) 30.7 % (20.0-44.0); MEAN CORPUSCULAR HGB CONC 34 g/dl (31.0-36.0); MEAN CORPUSCULAR VOLUME 109 fL (82-100); MONOCYTES # (AUTO) 0.1 /CMM (0.1-1.30); NEUTROPHILS # (AUTO) 1.3 /CMM (1.8-8.9); NEUTROPHILS % (AUTO) 61.6 % (43.0-81.0); PLATELET COUNT (AUTO) 105 /CMM (150-450); RED BLOOD CELL COUNT(AUTO) 2.05 MIL/uL (4.0-5.2); WHITE BLOOD COUNT (AUTO) 2.2 K/uL (4.3-11.0)
[2018-11-13 06:43] LABS: ALANINE AMINOTRANSFERASE 6 U/L (12-78); ALBUMIN 3.4 g/dL (3.4-5.0); ALKALINE PHOSPHATASE 56 U/L (46-116); ASPARTATE AMINOTRANSFERASE 12 U/L (15-37); CALCIUM, SERUM 8.9 mg/dL (8.5-10.1); CARBON DIOXIDE 29 mmol/L (21-32); CHLORIDE 103 mmol/L (98-107); CREATININE 1.4 mg/dL (0.6-1.3); GLUCOSE 91 mg/dL (74-106); MAGNESIUM 2.1 mg/dL (1.8-2.4); POTASSIUM 3.7 mmol/L (3.5-5.1); SODIUM SERUM 142 mmol/L (136-145); TOTAL PROTEIN, SERUM 5.8 g/dL (6.4-8.2); UREA NITROGEN, BLOOD 45 mg/dL (7-18)
--- NOTE | 2018-11-13 06:51 | NUR ---
RN NOTES PT IN STABLE CONDITION. NO ACUTE CHANGES NOTED THROUGHOUT SHIFT. SAFETY MEASURES IN PLACED. ALL NEEDS ANTICIPATED. SAFETY MEASURES OBSERVED AT ALL TIMES. ENDORSED TO AM RN FOR DEMI
[2018-11-13 07:07] LABS: *SPE A/G RATIO 1.7 (0.7-1.7); *SPE ALBUMIN 3.3 g/dL (2.9-4.4); *SPE ALPHA-1-GLOBULIN 0.3 g/dL (0.0-0.4); *SPE ALPHA-2-GLOBULIN 0.5 g/dL (0.4-1.0); *SPE BETA GLOBULIN 0.6 g/dL (0.7-1.3); *SPE GLOBULIN, TOTAL 1.9 g/dL (2.2-3.9); *SPE M-SPIKE Not Observed g/dL (Not Observed); *SPEGAMMA GLOBULIN 0.5 g/dL (0.4-1.8)
--- NOTE | 2018-11-13 07:42 | NUR ---
RN OPENING NOTES RECEIVED PATIENT IN BED AWAKE, ALERT AND ORIENTED X4. TURKMEN SPEAKING. NO PAIN OR ACUTE DISTRESS AT THIS TIME. RESPIRATION EVEN AND UNLABORED. SKIN IS DRY WARM TO TOUCH. PATIENT ON ROOM AIR TOLERATED WELL. PATIENT IS NOTED WITH RIGHT AC G20 INTACT AND PATENT FLUSHING WELL. NO S/S OF INFECTION OR INFILTRATION. REYNA CATH INTACT AND IN PLACED. DRAINING WELL. ALL NEEDS ANTICIPATED. BED IS LOCKED AND IN LOWEST POSITION. SAFETY MEASURES IN PLACED. CALL LIGHT WITHIN EASY REACH. PLAN OF CARE DISCUSSED WITH PATIENT. WILL CONT TO MONITOR.
[2018-11-13 08:00] VITALS: BP 156/73
[2018-11-13 08:16] LABS: IMMUNOGLOBULIN A, SERUM 73 mg/dL (64-422); IMMUNOGLOBULIN G, SERUM 591 mg/dL (700-1600); IMMUNOGLOBULIN M, SERUM 62 mg/dL (26-217)
[2018-11-13] MEDS: ASPIRIN EC 81 MG TABLET.DR PO SCH (08:19)
[2018-11-13] MEDS: hydrALAZINE HCL 50 MG TABLET PO SCH ×2 (08:19→17:00)
[2018-11-13] MEDS: CARVEDILOL 12.5 MG TABLET PO SCH ×2 (08:19→21:00)
[2018-11-13] MEDS: ISOSORBIDE MONONITRATE 20 MG TABLET PO SCH (08:20)
[2018-11-13] MEDS: POTASSIUM CHLORIDE 20 MEQ TAB.PRT.SR PO SCH ×3 (11:05→13:31)
[2018-11-13] MEDS: FUROSEMIDE 40 MG/4 ML VIAL IV SCH ×3 (11:05→17:38)
[2018-11-13 16:00] VITALS: BP 108/49
[2018-11-13 17:07] LABS: FOLIC ACID 17.2 ng/mL (>3.0)
--- NOTE | 2018-11-13 17:50 | NUR ---
RN NOTES MEDICATION HYDRAZALINE WAS HELD DUE TO PATIENT'S BLOOD PRESSURE OF 108/49. HR - 62. WILL CONTINUE TO MONITOR.
[2018-11-13] MEDS: CYANOCOBALAMIN 1,000 MCG/ML VIAL IM SCH (18:33)
--- NOTE | 2018-11-13 19:12 | NUR ---
RN CLOSING NOTES PATIENT IN BED SLEEPING COMFORTABLY. EASILY AROUSABLE. PATIENT IS A/O X4. ICELANDIC SPEAKING. NO PAIN OR ACUTE DISTRESS AT THIS TIME. RESPIRATION EVEN AND UNLABORED. SKIN IS DRY WARM TO TOUCH. IV ACCESS ON RIGHT AC INTACT AND PATENT. FLUSHING WELL. F/C INTACT WELL WITH 1300CC OF OUTPUT. PATIENT TOLERATED MEALS AND MEDS WELL. ALL NEEDS ANTICIPATED. KEPT CLEAN AND DRY. CALL LIGHT WITHIN REACH. BED LOCKED AND IN LOWEST POSITION. SAFETY MEASURES OBSERVED. WILL CONTINUE TO MONITOR. ENDORSED TO PM NURSE FOR DEMI.
[2018-11-13 20:00] VITALS: BP 107/48
--- NOTE | 2018-11-13 20:15 | NUR ---
RN OPENING NOTES RECEIVED REPORT FROM JUAN ANTONIO WOLF. PATIENT A/A/O X3, MOSTLY FRENCH-SPEAKING BUT ABLE TO STATE PAIN & MAKE SOME NEEDS KNOWN. BREATHING EVEN & UNLABORED, TOLERATING ROOM AIR. DENIES ANY SOB OR DIFFICULTY BREATHING. BILATERAL RADIAL PULSES PRESENT. RIGHT AC IV #20 INTACT & PATENT W/ DRESSING CDI, SALINE LOCKED. NO SIGNS OF INFILTRATION NOTED. REYNA CATH DRAINING YELLOW URINE. SAFETY MEASURES IN PLACE W/ SIDE RAILS UP & BED ALARM ON. TURNED & REPOSITIONED FOR COMFORT. WILL CONTINUE TO MONITOR.
[2018-11-13] MEDS: ACETYLCYSTEINE 10% 3,000 MG/30 ML VIAL PO SCH (20:16)
--- NOTE | 2018-11-13 21:30 | NUR ---
RN NOTES CARVEDILOL HELD D/T PATIENT'S DECREASED BP 107/48
[2018-11-13] MEDS: clonazePAM 0.5 MG TABLET PO SCH (21:41)
[2018-11-13] MEDS: ATORVASTATIN 10 MG TABLET PO SCH (21:41)
[2018-11-14 04:00] VITALS: BP 100/52
[2018-11-14] MEDS: HEPARIN SODIUM, PORCINE 5000 UNITS/1 ML VIAL SQ SCH ×2 (06:05→18:46)
[2018-11-14 07:12] LABS: BASOPHILS % (AUTO) 1.5 % (0.0-2.0); EOSINOPHILS % (AUTO) 1.1 % (0.0-6.0); HEMATOCRIT 25 % (33-45); HEMOGLOBIN 8.2 g/dL (11.5-14.8); LYMPHOCYTES # (AUTO) 0.9 /CMM (0.8-4.8); LYMPHOCYTES % (AUTO) 32.5 % (20.0-44.0); MEAN CORPUSCULAR HGB CONC 33 g/dl (31.0-36.0); MEAN CORPUSCULAR VOLUME 110 fL (82-100); MONOCYTES # (AUTO) 0.1 /CMM (0.1-1.30); MONOCYTES % (AUTO) 4.5 % (2.0-12.0); NEUTROPHILS # (AUTO) 1.7 /CMM (1.8-8.9); NEUTROPHILS % (AUTO) 60.4 % (43.0-81.0); PLATELET COUNT (AUTO) 118 /CMM (150-450); RED BLOOD CELL COUNT(AUTO) 2.25 MIL/uL (4.0-5.2); WHITE BLOOD COUNT (AUTO) 2.8 K/uL (4.3-11.0)
[2018-11-14 07:40] LABS: ALANINE AMINOTRANSFERASE 17 U/L (12-78); ALBUMIN 3.5 g/dL (3.4-5.0); ALKALINE PHOSPHATASE 60 U/L (46-116); ASPARTATE AMINOTRANSFERASE 11 U/L (15-37); BILIRUBIN,TOTAL 1.1 mg/dL (0.2-1.0); CARBON DIOXIDE 31 mmol/L (21-32); CHLORIDE 101 mmol/L (98-107); CREATININE 1.5 mg/dL (0.6-1.3); GLUCOSE 93 mg/dL (74-106); MAGNESIUM 2.1 mg/dL (1.8-2.4); PHOSPHORUS 4.3 mg/dL (2.5-4.9); POTASSIUM 3.9 mmol/L (3.5-5.1); SODIUM SERUM 142 mmol/L (136-145); TOTAL PROTEIN, SERUM 6.3 g/dL (6.4-8.2); UREA NITROGEN, BLOOD 42 mg/dL (7-18)
--- NOTE | 2018-11-14 07:55 | NUR ---
MS RN OPENING NOTES RECEIVED PATIENT A/O X3, NO SOB OR ACUTE DISTRESS NOTED. MOSTLY LAO-SPEAKING BUT ABLE TO STATE PAIN & MAKE SOME NEEDS KNOWN. ON ROOM AIR. R AC IV #20 INTACT & PATENT W/ DRESSING CDI, SALINE LOCKED. NO SIGNS OF INFILTRATION NOTED. REYNA CATH DRAINING YELLOW URINE. SAFETY MEASURES IN PLACE W/ SIDE RAILS UP & BED ALARM ON, CALL LIGHT WITHIN REACH. TURNED & REPOSITIONED FOR COMFORT. WILL CONTINUE TO MONITOR.
[2018-11-14 08:00] VITALS: BP 148/65
[2018-11-14] MEDS: ASPIRIN EC 81 MG TABLET.DR PO SCH (08:35)
[2018-11-14] MEDS: CARVEDILOL 12.5 MG TABLET PO SCH ×2 (08:36→21:00)
[2018-11-14] MEDS: hydrALAZINE HCL 50 MG TABLET PO SCH ×2 (08:36→16:20)
[2018-11-14] MEDS: ISOSORBIDE MONONITRATE 20 MG TABLET PO SCH (08:36)
[2018-11-14] MEDS: ACETYLCYSTEINE 10% 3,000 MG/30 ML VIAL PO SCH ×2 (08:44→16:55)
[2018-11-14 09:20] LABS: BAND % (MANUAL) 1 % (0.0-5.0); LYMPHOCYTES % (MANUAL) 28 % (16-48); MONOCYTES % (MANUAL) 3 % (0-11.0); NEUTROPHILS % (MANUAL) 68 (42-76)
[2018-11-14] MEDS: CYANOCOBALAMIN 1,000 MCG/ML VIAL IM SCH (09:20)
[2018-11-14] MEDS: POTASSIUM CHLORIDE 20 MEQ TAB.PRT.SR PO SCH (09:41)
[2018-11-14] MEDS: FUROSEMIDE 40 MG TABLET PO SCH (09:41)
[2018-11-14] MEDS ORDERED: DIATR MEGLU/DIATRIZOATE SODIUM 30 ML BOTTLE (GASTROGRAPHIN) ONE (10:47)
[2018-11-14] MEDS ORDERED: POLYETHYLENE GLYCOL 3350 17 GM POWD.PACK PO PRN (14:00)
[2018-11-14] MEDS ORDERED: BISACODYL SUPP (10 MG) 10 MG/SUPP.RECT SUPP.RECT RC PRN (14:00)
--- NOTE | 2018-11-14 14:00 | NUR ---
CT OF CHEST/ABD/PELVIS COMPLETED W/O INCIDENT.
[2018-11-14] MEDS ORDERED: IOHEXOL-300 100 ML VIAL IV ONE (14:19)
[2018-11-14] MEDS ORDERED: IV NS 0.9% 250 ML IV ONE (14:20)
[2018-11-14] MEDS ORDERED: CT SWABBABLE VALVE TRANS SET 1 EA INFUS.SET MC ONE (14:20)
[2018-11-14] MEDS: ACETAMINOPHEN 325 MG TABLET PO PRN ×2 (15:23→16:20)
[2018-11-14 16:00] VITALS: BP 128/61
[2018-11-14 16:08] VITALS: BP 128/61
--- NOTE | 2018-11-14 17:00 | NUR ---
PATIENT FAMILY REQUESTING NORCO FOR PAIN. ORDERED NORCO Q4HR PRN.
[2018-11-14] MEDS: clonazePAM 0.5 MG TABLET PO SCH (17:27)
[2018-11-14] MEDS: HYDROCODONE/APAP 5/325MG 1 EACH TABLET PO PRN (17:59)
--- NOTE | 2018-11-14 18:00 | NUR ---
MS RN NOTE PATIENT FAMILY ARRIVED AND FOUND PATIENT TO BE C/O PAIN AND APPEARING NERVOUS AND RESTLESS. SAID CONDITION WAS NOT EVIDENT UP TO THIS TIME. PATIENT FAMILY BECAME INSISTENT THAT THE PATIENT RECEIVE HER KLONOPIN AT AN EARLIER TIME THAN ORDERED. MEDICATION WAS ORDERED FOR HOUR OF SLEEP BUT FAMILY STATED THAT SHE HAS ALWAYS TAKEN IT AT 5:00PM. FAMILY INSISTED THAT SHE GET THE KLONOPIN. PATIENT WAS ADMINISTERED THE KLONIPIN. FAMILY THEN PROCEEDED TO INSIST ON STRONGER PAIN MEDICATION THAN TYLENOL. MD WAS CALLED AND MD ORDERED NORCO 5-325 TABLET PO Q4HRS PRN. PATIENT WAS GIVEN THE NORCO PRESCRIBED. PATIENT CLOSELY MONITORED UNTIL END OF SHIFT. PATIENT AWAKE AND TALKING AT 1930. NO SOB OR ACUTE DISTRESS NOTED.
--- NOTE | 2018-11-14 19:45 | NUR ---
MS1 RN NOTES RECEIVED ON BED A/O X3,SPEAK TURKISH ONLY,REYNA CAH IN PLACE DRAING CLEAR YELLOW OUTPUT.WITH SALINE LOCK RIGHT AC INTACT AND PATENT.NO SOB NOTED.O2 IN USED AT 2L TO KEEP O2 SAT ABOVE 90%,100 % THIS TIME.EVENING CARE RENDERED BY PORTIA SALAMANCA TOLERATED WELL. BLOOD PRESSURE ON THE LOW SIDE,DAY SHIFT NURSE JUST MEDICATE PATIENT WITH NORCO AND CLONAZEPAM.ASYMPTOMATIC,DENIES DIZZINESS.NO BLEEDING NOTED.WILL CONTINUE TO MONITOR STATUS.
--- NOTE | 2018-11-14 19:46 | NUR ---
MS RN CLOSING NOTES PATIENT IN BED, A/O X3, NO SOB OR ACUTE DISTRESS NOTED. MOSTLY ZIMBABWEAN-SPEAKING BUT ABLE TO STATE PAIN & MAKE SOME NEEDS KNOWN. ON ROOM AIR. R AC IV #20 INTACT & PATENT W/ DRESSING CDI, SALINE LOCKED. NO SIGNS OF INFILTRATION NOTED. REYNA CATH DRAINING YELLOW URINE. 800CC OUTPUT TODAY. SAFETY MEASURES IN PLACE W/ SIDE RAILS UP & BED ALARM ON, CALL LIGHT WITHIN REACH. TURNED & REPOSITIONED FOR COMFORT. CARE ENDORSED TO CIRCUS PERFORMER RN. .
[2018-11-14 20:00] VITALS: BP 96/55
--- NOTE | 2018-11-14 21:00 | NUR ---
MS1 RN NOTES COREG 25MG PO HELD FOR LOW BLOOD PRESSURE 96/55 MANUALLY.
[2018-11-14] MEDS: ATORVASTATIN 10 MG TABLET PO SCH (21:41)
[2018-11-15 04:00] VITALS: BP 146/59
[2018-11-15] MEDS: HEPARIN SODIUM, PORCINE 5000 UNITS/1 ML VIAL SQ SCH ×2 (06:02→18:08)
--- NOTE | 2018-11-15 06:48 | NUR ---
MS 1 RN NOTES SLEPT WELL AT NIGHT,DENIES PAIN DISCOMFORTS.SALINE LOCK REMAINS PATENT ON RIGHT AC.REYNA CATH DRAINS WELL..BLOOD PRESSURE NOW WITH IN NORMAL LIMITS.IN NO ACUTE DISTRESS.WILL ENDORSE TO DAY NURSE FOR DEMI.
[2018-11-15 07:05] LABS: BASOPHILS % (AUTO) 1.5 % (0.0-2.0); EOSINOPHILS % (AUTO) 2.1 % (0.0-6.0); HEMATOCRIT 23 % (33-45); HEMOGLOBIN 7.8 g/dL (11.5-14.8); LYMPHOCYTES # (AUTO) 1.1 /CMM (0.8-4.8); LYMPHOCYTES % (AUTO) 41.3 % (20.0-44.0); MEAN CORPUSCULAR HGB CONC 34 g/dl (31.0-36.0); MEAN CORPUSCULAR VOLUME 108 fL (82-100); MONOCYTES # (AUTO) 0.1 /CMM (0.1-1.30); MONOCYTES % (AUTO) 4.5 % (2.0-12.0); NEUTROPHILS # (AUTO) 1.3 /CMM (1.8-8.9); NEUTROPHILS % (AUTO) 50.6 % (43.0-81.0); PLATELET COUNT (AUTO) 111 /CMM (150-450); RED BLOOD CELL COUNT(AUTO) 2.12 MIL/uL (4.0-5.2); WHITE BLOOD COUNT (AUTO) 2.6 K/uL (4.3-11.0)
[2018-11-15 07:15] LABS: ALANINE AMINOTRANSFERASE 19 U/L (12-78); ALBUMIN 3.3 g/dL (3.4-5.0); ALKALINE PHOSPHATASE 62 U/L (46-116); ASPARTATE AMINOTRANSFERASE 15 U/L (15-37); CALCIUM, SERUM 8.8 mg/dL (8.5-10.1); CARBON DIOXIDE 31 mmol/L (21-32); CHLORIDE 98 mmol/L (98-107); CREATININE 1.6 mg/dL (0.6-1.3); GLUCOSE 82 mg/dL (74-106); MAGNESIUM 2.1 mg/dL (1.8-2.4); PHOSPHORUS 4.3 mg/dL (2.5-4.9); POTASSIUM 4.5 mmol/L (3.5-5.1); SODIUM SERUM 138 mmol/L (136-145); TOTAL PROTEIN, SERUM 5.9 g/dL (6.4-8.2); UREA NITROGEN, BLOOD 45 mg/dL (7-18)
--- NOTE | 2018-11-15 07:41 | NUR ---
MS RN OPENING NOTE PATIENT RECEIVED IN BED, A/O X3, NO SOB OR ACUTE DISTRESS NOTED. MOSTLY BELARUSIAN-SPEAKING BUT ABLE TO STATE PAIN & MAKE SOME NEEDS KNOWN. ON ROOM AIR. R AC IV #20 INTACT & PATENT W/ DRESSING CDI, SALINE LOCKED. NO SIGNS OF INFILTRATION NOTED. REYNA CATH DRAINING YELLOW URINE. SAFETY MEASURES IN PLACE W/ SIDE RAILS UP & BED ALARM ON, CALL LIGHT WITHIN REACH. TURNED & REPOSITIONED FOR COMFORT. WILL CONTINUE TO MONITOR.
[2018-11-15 08:00] VITALS: BP 157/64
[2018-11-15 09:04] LABS: EOSINOPHILS % (MANUAL) 1 % (0-4); LYMPHOCYTES % (MANUAL) 50 % (16-48); MONOCYTES % (MANUAL) 2 % (0-11.0); NEUTROPHILS % (MANUAL) 47 (42-76)
[2018-11-15] MEDS: FUROSEMIDE 40 MG TABLET PO SCH (09:08)
[2018-11-15] MEDS: ASPIRIN EC 81 MG TABLET.DR PO SCH (09:08)
[2018-11-15] MEDS: CYANOCOBALAMIN 1,000 MCG/ML VIAL IM SCH (09:08)
[2018-11-15] MEDS: POTASSIUM CHLORIDE 20 MEQ TAB.PRT.SR PO SCH (09:08)
[2018-11-15] MEDS: CARVEDILOL 12.5 MG TABLET PO SCH ×2 (09:09→21:00)
[2018-11-15] MEDS: hydrALAZINE HCL 50 MG TABLET PO SCH ×2 (09:09→17:00)
[2018-11-15] MEDS: ISOSORBIDE MONONITRATE 20 MG TABLET PO SCH (09:10)
[2018-11-15] MEDS: ACETYLCYSTEINE 10% 3,000 MG/30 ML VIAL PO SCH ×2 (09:21→17:51)
[2018-11-15] MEDS: ACETAMINOPHEN 325 MG TABLET PO PRN (11:59)
[2018-11-15] MEDS: HYDROCODONE/APAP 5/325MG 1 EACH TABLET PO PRN (13:32)
--- NOTE | 2018-11-15 13:44 | NUR ---
MS RN NOTE patient family requested [employer]. [employer] pulled and scanned. blood pressure checked before administration and found to be low, 89/44. [employer] held and returned to cabinet.
[2018-11-15] MEDS: TRAMADOL HCL 50 MG TABLET PO PRN ×3 (14:54→18:07)
[2018-11-15 16:00] VITALS: BP 93/41
--- NOTE | 2018-11-15 19:57 | NUR ---
MS RN CLOSING NOTE PATIENT IN BED, A/O X3, NO SOB OR ACUTE DISTRESS NOTED. MOSTLY MOROCCAN-SPEAKING BUT ABLE TO STATE PAIN & MAKE SOME NEEDS KNOWN. ON ROOM AIR. R AC IV #20 INTACT & PATENT W/ DRESSING CDI, SALINE LOCKED. NO SIGNS OF INFILTRATION NOTED. REYNA CATH DRAINING YELLOW URINE. SAFETY MEASURES IN PLACE W/ SIDE RAILS UP & BED ALARM ON, CALL LIGHT WITHIN REACH. TURNED & REPOSITIONED FOR COMFORT. CARE ENDORSED TO EDUCATIONAL RECRUITER RN.
[2018-11-15 20:00] VITALS: BP 106/47
--- NOTE | 2018-11-15 20:18 | NUR ---
MS/RN RECEIVED PATIENT SLEEPING, APPEAR COMFORTABLE, BREATHING EVEN AND UNLABORED, CALL LIGHT IN REACH. WILL MONITOR.
[2018-11-15] MEDS: ATORVASTATIN 10 MG TABLET PO SCH (22:10)
[2018-11-15] MEDS: clonazePAM 0.5 MG TABLET PO SCH (22:10)
[2018-11-16 04:00] VITALS: BP 137/65
[2018-11-16] MEDS: HEPARIN SODIUM, PORCINE 5000 UNITS/1 ML VIAL SQ SCH ×2 (05:59→17:32)
--- NOTE | 2018-11-16 06:04 | NUR ---
MS/RN PATIENT IS AWAKE, ALERT, ORIENTED, COMFORTABLE, NO C/O PAIN, NO DISTRESS NOTED, ALL NEEDS ATTENDED AT THIS TIME, WILL CONTINUE TO MONITOR.
--- NOTE | 2018-11-16 07:35 | NUR ---
MS RN OPENING NOTES PATIENT RECEIVED IN BED. ALERT AND ORIENTED X3. JAPANESE SPEAKING. ABLE TO MAKE NEEDS KNOWN. NO PAIN OR ACUTE DISTRESS AT THIS TIME. NO SOB RESPIRATION EVEN AND UNLABORED. SKIN IS DRY WARM TO TOUCH. ON ROOM AIR. R AC IV #20 INTACT & PATENT W/ DRESSING. NO S/ OF INFECTION OR INFILTRATION NOTED. REYNA CATH DRAINING YELLOW URINE. ALL NEEDS ANTICIPATED. KEPT CLEAN AND DRY. CALL LIGHT WITHIN REACHED. BED LOCKED AND IN LOWEST POSITION. BED ALARM ON. WILL CONTINUE TO MONITOR.
[2018-11-16 07:37] LABS: BASOPHILS % (AUTO) 1.2 % (0.0-2.0); EOSINOPHILS % (AUTO) 1.8 % (0.0-6.0); HEMATOCRIT 23 % (33-45); HEMOGLOBIN 7.9 g/dL (11.5-14.8); MEAN CORPUSCULAR HGB CONC 34 g/dl (31.0-36.0); MEAN CORPUSCULAR VOLUME 109 fL (82-100); MONOCYTES # (AUTO) 0.1 /CMM (0.1-1.30); MONOCYTES % (AUTO) 4.2 % (2.0-12.0); NEUTROPHILS # (AUTO) 1.5 /CMM (1.8-8.9); NEUTROPHILS % (AUTO) 55.8 % (43.0-81.0); PLATELET COUNT (AUTO) 109 /CMM (150-450); RED BLOOD CELL COUNT(AUTO) 2.13 MIL/uL (4.0-5.2); WHITE BLOOD COUNT (AUTO) 2.7 K/uL (4.3-11.0)
[2018-11-16 07:56] LABS: ALANINE AMINOTRANSFERASE 23 U/L (12-78); ALBUMIN 3.3 g/dL (3.4-5.0); ALKALINE PHOSPHATASE 62 U/L (46-116); ASPARTATE AMINOTRANSFERASE 15 U/L (15-37); BILIRUBIN,TOTAL 0.8 mg/dL (0.2-1.0); CARBON DIOXIDE 30 mmol/L (21-32); CHLORIDE 100 mmol/L (98-107); CREATININE 1.5 mg/dL (0.6-1.3); GLUCOSE 84 mg/dL (74-106); MAGNESIUM 2.2 mg/dL (1.8-2.4); PHOSPHORUS 4.5 mg/dL (2.5-4.9); POTASSIUM 4.9 mmol/L (3.5-5.1); SODIUM SERUM 139 mmol/L (136-145); UREA NITROGEN, BLOOD 49 mg/dL (7-18)
[2018-11-16 08:00] VITALS: BP 151/58
[2018-11-16] MEDS: hydrALAZINE HCL 50 MG TABLET PO SCH ×2 (08:44→17:00)
[2018-11-16] MEDS: CYANOCOBALAMIN 1,000 MCG/ML VIAL IM SCH (08:44)
[2018-11-16] MEDS: FUROSEMIDE 40 MG TABLET PO SCH (08:44)
[2018-11-16] MEDS: ASPIRIN EC 81 MG TABLET.DR PO SCH (08:44)
[2018-11-16] MEDS: ISOSORBIDE MONONITRATE 20 MG TABLET PO SCH (08:45)
[2018-11-16] MEDS: CARVEDILOL 12.5 MG TABLET PO SCH ×2 (08:45→21:34)
[2018-11-16] MEDS: HYDROCODONE/APAP 5/325MG 1 EACH TABLET PO PRN (12:24)
--- NOTE | 2018-11-16 14:08 | NUR ---
13:35 RN WAS GIVING THE PT A SHOWER. SHE ASKED TO RETURN IN ABOUT 30 MINUTES
[2018-11-16 16:00] VITALS: BP_SYST 110; BP_SYST 93; BP_DIAS 30; BP_DIAS 53
--- NOTE | 2018-11-16 17:10 | NUR ---
RN NOTES MEDICATION HYDRAZALINE HELD DUE TO PATIENT BP OF 101/54 AND HR OF 64. WILL CONTINUE TO MONITOR.
--- NOTE | 2018-11-16 18:45 | NUR ---
RN CLOSING NOTES PATIENT IN BED SLEEPING COMFORTABLY. EASILY AROUSABLE. NO PAIN OR ACUTE DISTRESS AT THIS TIME. RESPIRATION EVEN AND UNLABORED. SKIN IS DRY WARM TO TOUCH. PATIENT ABLE TO TOLERATE MEALS AND MEDS WELL. PATIENT REMAINS IN STABLE CONDITION. ALL NEEDS ANTICIPATED. CALL LIGHT WITHIN REACHED. ENDORSED TO PM NURSE FOR DEMI.
[2018-11-16 20:00] VITALS: BP_SYST 100; BP_SYST 113; BP_DIAS 31; BP_DIAS 46
[2018-11-16] MEDS: clonazePAM 0.5 MG TABLET PO SCH (21:34)
[2018-11-17 04:00] VITALS: BP 111/32
--- NOTE | 2018-11-17 06:26 | NUR ---
RN NOTES RECEIVED PATIENT AWAKE IN BED WATCHING TV WITH NO DISTRESS NOTED. BREATHING EVEN AND UNLABORED. ALERT AND ORIENTED, BENGAL[place] SPEAKING. N. NO COMPLAINT OF PAIN. NEEDS ATTENDED, KEPT CLEAN AND DRY. WILL ENDORSE TO NEXT SHIFT FOR CONTINUITY OF CARE.
[2018-11-17] MEDS: HEPARIN SODIUM, PORCINE 5000 UNITS/1 ML VIAL SQ SCH (06:32)
--- NOTE | 2018-11-17 07:33 | NUR ---
MS/RN OPENING NOTE PATIENT IN BED IN STABLE CONDITION. A/O X 3, CROAT[place] SPEAKING. NO SIGNS OF ACUTE DISTRESS. NO COMPLAIN OF PAIN OR DISCOMFORT. ALL NEEDS ATTENDED TO AT THIS TIME. CALL LIGHT WITHIN REACH. WILL CONTINUE TO MONITOR TO ENSURE SAFETY.
[2018-11-17 08:00] VITALS: BP 141/41
[2018-11-17] MEDS: hydrALAZINE HCL 50 MG TABLET PO SCH (08:27)
[2018-11-17] MEDS: FUROSEMIDE 40 MG TABLET PO SCH (08:27)
[2018-11-17] MEDS: ASPIRIN EC 81 MG TABLET.DR PO SCH (08:27)
[2018-11-17 08:28] VITALS: BP 141/61
[2018-11-17] MEDS: ISOSORBIDE MONONITRATE 20 MG TABLET PO SCH (08:28)
[2018-11-17] MEDS: CYANOCOBALAMIN 1,000 MCG/ML VIAL IM SCH (08:28)
[2018-11-17] MEDS: CARVEDILOL 12.5 MG TABLET PO SCH (08:28)
[2018-11-17 11:07] LABS: CANCER AG, 125 78.2 U/mL (0.0-38.1); CANCER AG, 15-3 29.1 U/mL (0.0-25.0); CARBOHYDRATE AG 19-9 32 U/mL (0-35)
[2018-11-17] MEDS ORDERED: FURO40TA5 PO (13:25)
[2018-11-17] MEDS: HYDROCODONE/APAP 5/325MG 1 EACH TABLET PO PRN (15:20)
--- NOTE | 2018-11-17 15:48 | NUR ---
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 A/O X 3, [place]ONG[place] SPEAKING. NO SIGNS OF ACUTE DISTRESS. NO COMPLAIN OF PAIN OR DISCOMFORT. DISCHARGE EDUCATION AND TEACHINGS PROVIDED AND TRANSLATED BY DAUGHTER IN [place], VERBALIZED UNDERSTANDING. REPORT GIVEN TO LUCIANO MEI FROM [facility]. ALL NEEDS ATTENDED TO. NAME BAND AND IV LINE REMOVED, LEFT IN STABLE CONDITION ACCOMPANIED VIA GURNEY ACCOMPANIED BY 2 PEDIATRIC NURSE.
== END 2018-11-17 15:48 | DRG 291 ==
LOC: ER 11:24 → TELE1 13:26 → MEDSG1 11-11 17:48
PROVIDERS: ADMIT Nurse Practitioner Acute Care; ATTEND Hospitalist
DX: I11.0 Hypertensive heart disease with heart failure (principal); N17.0 Acute kidney failure with tubular necrosis; D61.818 Other pancytopenia; E44.0 Moderate protein-calorie malnutrition; J98.11 Atelectasis; I31.3 Pericardial effusion (noninflammatory); I50.33 Acute on chronic diastolic (congestive) heart failure; Z79.82 Long term (current) use of aspirin; D63.8 Anemia in other chronic diseases classified elsewhere; Z79.899 Other long term (current) drug therapy; I08.1 Rheumatic disorders of both mitral and tricuspid valves; I25.10 Atherosclerotic heart disease of native coronary artery without angina pectoris; I27.20 Pulmonary hypertension, unspecified; Z95.2 Presence of prosthetic heart valve; Z90.710 Acquired absence of both cervix and uterus; Z95.0 Presence of cardiac pacemaker; Z98.890 Other specified postprocedural states; J47.9 Bronchiectasis, uncomplicated; K59.00 Constipation, unspecified; R91.1 Solitary pulmonary nodule; D75.89 Other specified diseases of blood and blood-forming organs; E04.2 Nontoxic multinodular goiter; E78.5 Hyperlipidemia, unspecified; T50.2X5A Adverse effect of carbonic-anhydrase inhibitors, benzothiadiazides and other diuretics, initial encounter; Y92.9 Unspecified place or not applicable
CPT/HCPCS: 36415; 71045-TC; 71270-TC; 74178; 76536-TC; 76604-TC; 76700-TC; 80048-TC; 80053-TC; 80061-TC; 82378; 82784; 83540-TC; 83615-TC; 83735-TC; 83880; 84100-TC; 84155; 84165; 84439-TC; 84443-TC; 84484-TC; 85025-TC; 85730-TC; 86300; 86301; 86304; 86334; 86480; 86800; 87040-TC; 87081-TC; 93307-TC; 93970-TC; 97110-TC; 97116-TC; 97530-TC; G0378; J1644; J1940; J3420; J3490; J7030; J7050; Q9963; Q9967